=== PATIENT | male | born 1935 | race Caucasian/White ===

== ENCOUNTER → 2016-12-15 | Outpatient (CLI) | payer MEDICARE | LOC: SP 08:38 | PROVIDERS: ATTEND Specialist | DX: I65.23 Occlusion and stenosis of bilateral carotid arteries (principal) | CPT/HCPCS: 93880 ==

== ENCOUNTER 2017-07-03 03:49 | Emergency (ER) | payer MEDICARE ==
[2017-07-03] MEDS ORDERED: NORMAL SALINE 1000 ML 1,000 ML IV PRN (03:54)
[2017-07-03 04:56] LABS: ABSOLUTE EOSINOPHILS # (AUTO) 0.3 10^3/uL (0.0-0.6); ABSOLUTE LYMPHOCYTES (AUTO) 1.4 10^3/uL (0.5-4.7); ABSOLUTE MONOCYTES (AUTO) 0.6 10^3/uL (0.1-1.4); ABSOLUTE NEUT (AUTO) 5.9 10^3/uL (1.7-8.2); BASOPHILS % (AUTO) 0.6 % (0-2); EOSINOPHILS % (AUTO) 3.3 % (0-6); HEMATOCRIT 24.6 % (37.9-51.0); HEMOGLOBIN 8.5 g/dL (13.5-17.0); HGB HCT DIFFERENCE 0.9; LYMPHOCYTES % (AUTO) 16.7 % (13-45); MEAN CORPUSCULAR HEMOGLOBIN 28.7 pg (27.0-33.4); MEAN CORPUSCULAR HGB CONC 34.7 g/dL (32.0-36.0); MEAN CORPUSCULAR VOLUME 83 fl (80-97); MONOCYTES % (AUTO) 7.5 % (3-13); RED BLOOD COUNT 2.98 10^6/uL (4.35-5.55); RED CELL DISTRIBUTION WIDTH 14.2 % (11.5-14.0); SEGMENTED NEUTROPHILS % (AUTO) 71.9 % (42-78); WHITE BLOOD COUNT 8.2 10^3/uL (4.0-10.5)
--- NOTE | 2017-07-03 04:59 | ER Document Report ---
ED GI Bleed / Rectal Pain - General Stated Complaint: RECTAL BLEEDING Time Seen by Provider: 07/03/17 03:55 Mode of Arrival: Stretcher Information source: Patient TRAVEL OUTSIDE OF THE [place] IN LAST 30 DAYS: No - HPI Patient complains to provider of: Dark red bld from rectum Onset: Yesterday Timing/Duration: Persistent, Worse Quality of pain: No pain Use of: ASA Notes: Patient is an 81-year-old male presenting to the emergency room complaining of passage of the large amount of blood from his rectum that started yesterday, stating he had bloody diarrhea to start with, and he woke up in the morning and had a large amount of blood covering his shorts in the bed, yesterday he had some crampy lower abdominal pain as well but that has since resolved, he denies any vomiting, no fever or chills, no history of similar symptoms previously, he does take a daily aspirin but no other anticoagulating medications, no history of diverticulitis, once again he woke up in the middle of the night around 2:30 AM covered in a large amount of bloody stool, prompting him to come to the emergency room for evaluation, he also complains of generalized weakness - Related Data Allergies/Adverse Reactions: cefazolin sodium [From Ancef] Allergy (Verified 05/17/15 10:18) Past Medical History - General Information source: Patient - Social History Smoking Status: Never Smoker Family History: Reviewed & Not Pertinent - Past Medical History Cardiac Medical History: Reports: Hx Hypercholesterolemia, Hx Hypertension Endocrine Medical History: Reports: Hx Diabetes Mellitus Type 2 Past Surgical History: Reports: Hx Appendectomy, Hx Cardiac Surgery - aortic valve replacement - Immunizations Hx Diphtheria, Pertussis, Tetanus Vaccination: Yes Review of Systems - Review of Systems Constitutional: No symptoms reported EENT: No symptoms reported Cardiovascular: No symptoms reported Respiratory: No symptoms reported Gastrointestinal: See HPI Genitourinary: No symptoms reported Male Genitourinary: No symptoms reported Musculoskeletal: No symptoms reported Skin: No symptoms reported Hematologic/Lymphatic: No symptoms reported Neurological/Psychological: No symptoms reported -: Yes All other systems reviewed and negative Physical Exam - Vital signs Vitals: Resp Pulse Ox 15 100 07/03/17 04:18 07/03/17 04:18 Interpretation: Normal - General General appearance: Appears well, Alert - HEENT Head: Normocephalic, Atraumatic Eyes: Normal Pupils: PERRL - Respiratory Respiratory status: No respiratory distress Chest status: Nontender Breath sounds: Normal Chest palpation: Normal - Cardiovascular Rhythm: Regular Heart sounds: Normal auscultation Murmur: No - Abdominal Inspection: Normal Distension: No distension Bowel sounds: Normal Tenderness: Nontender Organomegaly: No organomegaly - Rectal Tenderness: No Stool: Other - No gross blood Hemorrhoids: None Prostate: Enlarged - Back Back: Normal, Nontender - Extremities General upper extremity: Normal inspection, Nontender, Normal color, Normal ROM , Normal temperature General lower extremity: Normal inspection, Nontender, Normal color, Normal ROM , Normal temperature, Normal weight bearing. No: Tasha's sign - Neurological Neuro grossly intact: Yes Cognition: Normal Orientation: AAOx4 [place] Coma Scale Eye Opening: Spontaneous [place] Coma Scale Verbal: Oriented [place] Coma Scale Motor: Obeys Commands [place] Coma Scale Total: 15 Speech: Normal Motor strength normal: LUE, RUE, LLE, RLE Sensory: Normal - Psychological Associated symptoms: Normal affect, Normal mood - Skin Skin Temperature: Warm Skin Moisture: Dry Skin Color: Normal Course - Re-evaluation Re-evalutation: 07/03/17 05:21 A call was placed to [facility], discussed patient with Rajani in the transfer center and requested callback from hospitalist service for transfer of patient 07/03/17 05:49 After placing a call to [facility] family decided that they would prefer patient be transferred to [facility] as it is closer, therefore I placed a call to [facility], patient was discussed with hospitalist Dr. Begum who agrees to accept for transfer - Vital Signs Vital signs: Temp Pulse Resp BP Pulse Ox 11 L 124/60 100 07/03/17 05:01 07/03/17 05:01 07/03/17 05:01 - Laboratory Result Diagrams: 07/03/17 04:30 07/03/17 04:30 Laboratory results interpreted by me: 07/03/17 07/03/17 04:30 04:30 RBC 2.98 L Hgb 8.5 L Hct 24.6 L RDW 14.2 H Chloride 111 H Carbon Dioxide 20 L BUN 34 H Creatinine 1.86 H Est GFR ( Amer) 42 L Est GFR (Non-Af Amer) 35 L Glucose 171 H Total Protein 5.1 L Albumin 3.1 L - EKG Interpretation by [place] EKG shows normal: Sinus rhythm Rate: Bradycardia [place]/QRS: IVCD Discharge - Discharge Clinical Impression: GI bleed Qualifiers: GI bleed type/associated pathology: unspecified gastrointestinal hemorrhage type Qualified Code(s): K92.2 - Gastrointestinal hemorrhage, unspecified Condition: Serious Disposition: [facility]
[2017-07-03 05:13] LABS: ALANINE AMINOTRANSFERASE 39 U/L (21-72); ALBUMIN 3.1 g/dL (3.5-5.0); ALKALINE PHOSPHATASE 80 U/L (38-126); ANION GAP 10 (5-19); ASPARTATE AMINO TRANSFERASE 18 U/L (17-59); BILIRUBIN,DIRECT 0.3 mg/dL (0.0-0.4); BILIRUBIN,TOTAL 0.4 mg/dL (0.2-1.3); BLOOD UREA NITROGEN 34 mg/dL (7-20); CALCIUM 8.7 mg/dL (8.4-10.2); CARBON DIOXIDE 20 mmol/L (22-30); CHLORIDE 111 mmol/L (98-107); CREATININE RESULT 1.86 mg/dL (0.52-1.25); GLUCOSE 171 mg/dL (75-110); POTASSIUM 4.2 mmol/L (3.6-5.0); TOTAL PROTEIN 5.1 g/dL (6.3-8.2)
[2017-07-03 06:20] LABS: APPEARANCE,URINE CLEAR; BILIRUBIN,URINE NEGATIVE (NEGATIVE); GLUCOSE, URINE NEGATIVE (NEGATIVE); KETONES,URINE NEGATIVE (NEGATIVE); LEUKOCYTE ESTERASE,URINE SMALL (NEGATIVE); NITRITE,URINE NEGATIVE (NEGATIVE); PROTEIN,URINE NEGATIVE (NEGATIVE); UROBILINOGEN,URINE NEGATIVE mg/dL (<2.0)
[2017-07-03 07:21] VITALS: BP 125/53
--- NOTE | 2017-07-05 06:24 | EKG REPORT ---
SEVERITY:- ABNORMAL ECG - SINUS RHYTHM NONSPECIFIC INTRAVENTRICULAR CONDUCTION DELAY : Confirmed by: Eileen Mcdonough MD 05-Jul-2017 06:24:06
== END 2017-07-03 07:40 | disposition short-term general hospital (02) ==
LOC: ER 03:49
DX: K92.2 Gastrointestinal hemorrhage, unspecified (principal)
CPT/HCPCS: 93005; 99285; 96360; 86900; 86901; 36415; 87086; 86850; 85025; 82272; 80053; 81001; 93010; J7030